=== PATIENT | female | born 1945 | race Caucasian/White ===

== ENCOUNTER 2017-06-09 12:23 | Emergency (ER) | payer OTHER, BC ==
[~2017-06-09] VITALS: Ht 162.6 cm; Wt 59.0 kg
[2017-06-09 13:37] VITALS: BP 126/68
== END 2017-06-09 13:37 | disposition home or self-care (01) ==
LOC: ER 12:23
DX: S40.011A Contusion of right shoulder, initial encounter (principal); F10.99 Alcohol use, unspecified with unspecified alcohol-induced disorder; Z77.22 Contact with and (suspected) exposure to environmental tobacco smoke (acute) (chronic); W18.09XA Striking against other object with subsequent fall, initial encounter; Y93.89 Activity, other specified; Y92.89 Other specified places as the place of occurrence of the external cause; Y99.8 Other external cause status

== ENCOUNTER → 2018-06-22 | Outpatient (CLI) | payer OTHER, BC ==
[~2018-06-22] MED LIST: ASPIR 8181 MG PO; HYDROCODONE-AP1 EAC6 PO; METOPROLOL SUCC50 MG PO; MIRALAX17 GM PO; NORVASC5 MG PO; PEPCID20 MG PO; PRINIVIL40 MG PO; ROSUVASTATIN CA20 MG PO; SIMVASTATIN40 MG PO; VITAMIN B-12500 MCG PO; VITAMINC500 PO
== END ==
LOC: RAD 08:59
DX: K80.20 Calculus of gallbladder without cholecystitis without obstruction (principal); R11.0 Nausea; I10 Essential (primary) hypertension

== ENCOUNTER 2018-06-26 05:28 | Observation (INO) | payer OTHER, BC ==
[~2018-06-26] VITALS: Ht 160 cm; Wt 57.6 kg
[2018-06-26] VITALS (7 sets, daily range): BP systolic 101–174; BP diastolic 56–86
--- NOTE | ~2018-06-26 | H ---
[facility] [place] [address] [address] HISTORY AND PHYSICAL Name: CLARITA HUNG Room #: PRE [facility]..#: [id number] Admission: Attend Phys: Tonny Borwnlee MD Discharge: Date of : 41 Report #: [id number] THIS REPORT FOR: //name// CC: oTnny Avila MD DATE OF SERVICE: 06/26/2018 CONSULTED BY: Dr. Avila. PREOPERATIVE DIAGNOSIS: Cholecystitis with cholelithiasis. HISTORY OF PRESENT ILLNESS: The patient is a 73-year-old who has not been feeling well for a couple of years. Last month she has had increasing symptom. Her stomach has been an issue for her for a while. She is complaining of nausea, dry heaves. Food makes her symptoms worse. She is complaining of bloating. She complains of gas, belching. She has had some constipation. Mild weight loss of 4-5 pounds. Her back is also an issue across the mid part of her back. She has even seen a massage therapist, which did not help. She is now only able to eat soup, salads and fruits. Has extensive history of indigestion. She has been on Tums for years. She has pain in the back and also underneath the right rib area. This has been going on for about a year. It was intermittent. Now it is continuous. The patient's mother had gallbladder surgery. The patient was recently hospitalized at for hyponatremia, probably due to her alteration in her diet and she was drinking too much water. For her abdominal discomfort an ultrasound was performed. Her lipase was noted to be elevated. This was on 06/21/2018. Lipase was 233 with a normal range of 85. The patient's liver function tests were normal, normal bilirubin, alkaline phosphatase, SGOT, SGPT. Her sodium is still running a bit low at 128 on 06/21/2018. The patient's white count is 5000, hemoglobin is 12.9, platelets are 328. Normal differential. The patient then had an ultrasound the following day on 06/22/2018. The patient was found to have gallstones. There is no gallbladder wall thickening, no common bile duct dilatation. The patient is brought in for laparoscopic gallbladder surgery for her fairly symptomatic cholecystitis. PAST MEDICAL HISTORY: The patient does have history of high blood pressure and elevated cholesterol. MEDICATIONS: Amlodipine 5 mg, lisinopril 40 mg, metoprolol 50 mg twice daily, MiraLax, Crestor 20 mg daily at bedtime, enteric coated aspirin 81 mg, vitamin C. ALLERGIES: The patient does not have any allergies. [address] [address] HISTORY AND PHYSICAL Name: CLARITA HUNG Room #: PRE [facility] [place]#: [id number] Admission: Attend Phys: Tonny Brownlee MD Discharge: Date of : 41 Report #: [id number] PAST SURGICAL HISTORY: She has not had any surgery. FAMILY HISTORY: Father of a heart attack at age 65. Mother had stroke. A sibling with heart disease. SOCIAL HISTORY: The patient does not smoke. The patient drinks about once or twice a day. REVIEW OF SYSTEMS: No chest pain, shortness of breath, palpitation. No numbness or weakness. She does have a generalized not feeling well for a while. PHYSICAL EXAMINATION: GENERAL: The patient is an elderly female, in no acute distress. HEENT: Pupils react to light. Extraocular muscles are intact. Oropharynx is clear. NECK: Soft and supple, no masses. LUNGS: Clear to auscultation. HEART: Regular rate and rhythm. No murmur or gallop. ABDOMEN: Soft, nondistended, nontender. Mild tenderness in right upper quadrant. Negative Rovsing sign. No mass, ascites. EXTREMITIES: No cyanosis, clubbing or edema. NEUROLOGIC: Motor and sensory exams are unremarkable. IMPRESSION AND PLAN: The patient is a 73-year-old who has had stomach issue for a while, she says. She for the last month has been having trouble with worsening nausea and dry heave. She recently was hospitalized at for hyponatremia. This may have been her alteration in diet and was drinking water without really eating much. The patient does have gallstones. Liver function tests are normal. She did have a mildly elevated lipase recently. I think this is probably from gallbladder irritation. I do not think this is pancreatitis or evidence of common duct stone. RECOMMENDATION: The patient is recommended to undergo laparoscopic cholecystectomy to treat her symptomatic cholecystitis with cholelithiasis. The procedure was discussed in detail. The patient understands the procedure, the risk of bleeding, infection, common bile duct injury and anesthetic risk. The recovery course was discussed. The patient wishes to proceed. By: [id number] Tonny Brownlee MD /nt
--- NOTE | ~2018-06-26 | PATH ---
[facility] [address] [place] [address] PATHOLOGY RPT PROCEDURE Name: CLARITA HUNG Room #: 457-P [facility] Kelvin Underwood#: [id number] Admission: 06/26/18 Date of : 41 Discharge: 06/27/18 Report #: [id number] Path Case #: [id number] [facility] Accession Number: [id number] . 01 Material submitted: . GALLBLADDER . 01 Clinical history: . Cholelithiasis and cholecystitis . 02 Diagnosis: Gallbladder, cholecystectomy: - Mild chronic cholecystitis. - Cholelithiasis. . 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 02 Electronically signed: . Meagan Correa MD, Pathologist NPI- [id number] . 01 Gross description: . The specimen is received in formalin, labeled "Hung, Rhetta, gallbladder", is a previously opened gallbladder measuring 8.2 x 3.0 x 1.4 cm (upon reconstruction) with a glistening, mix-green serosa. Further opening reveals a mix-brown granular mucosa and a wall that measures up to 0.2 cm thick. Within the container are several black irregular calculi measuring 1.0 x 0.8 x 0.6 cm in aggregate. No discrete masses are identified. Reverser tissue is submitted in A1. (SWS; 06/26/2018) SHS/SHS . 02 Pathologist provided ICD-10: K80.10 . 02 CPT . 874795 Specimen Comment: A courtesy copy of this report has been sent to Specimen Comment: [phone], . Specimen Comment: Report sent to / DR TAN Performed at: [address] [id number] MD Bobby Hernandez MD Phone: [phone] Performed at: [address] [address] PATHOLOGY RPT PROCEDURE Name: CLARITA HUNG Room #: 457-P [facility] Kelvin Underwood#: [id number] Admission: 06/26/18 Date of : 41 Discharge: 06/27/18 Report #: [id number] Path Case #: [id number] [address] [place], [place] [id number] MD Meagan Correa MD Phone: [phone]
--- NOTE | ~2018-06-26 | O ---
[facility] [place] [address] [place] [address] OPERATIVE REPORT Name: CLARITA HUNG Room #: 457-P [facility].#: [id number] Admission: 06/26/18 Attend Phys: Tonny Brownlee MD Discharge: Date of : 41 Report #: [id number] THIS REPORT FOR: //name// CC: Tonny Avila MD DATE OF SERVICE: 06/26/2018 PREOPERATIVE DIAGNOSIS: Cholecystitis with cholelithiasis. POSTOPERATIVE DIAGNOSIS: Cholecystitis with cholelithiasis. PROCEDURES PERFORMED: Laparoscopic cholecystectomy and cholangiogram. ANESTHESIA: General anesthesia. SURGEON: Tonny Brownlee MD COMPLICATIONS: None. ESTIMATED BLOOD LOSS: 5 mL. FINDINGS: Gallbladder is covered by adhesions. There are multiple stones in the gallbladder. Common bile duct appears normal. DESCRIPTION OF PROCEDURE: With the patient under general anesthesia, abdomen was prepped and draped in sterile fashion. IV antibiotic was administered. A 0.25% Marcaine was used to anesthetize the skin. A curvilinear incision was made infraumbilically about 2 cm. Fascia identified, grasped with hemostat. Fascia was then opened under visualization, 0 Vicryl suture placed on the fascia edges. With the abdominal wall lifted anteriorly, Veress needle was then placed through the peritoneum. Abdominal cavity was insufflated with CO2. After creating pneumoperitoneum pressure of 15, 11 mm trocar was placed into the pneumoperitoneum. Laparoscopic evaluation was unremarkable. The liver appeared normal. Two 5 mm trocars were placed in right lower quadrant and a 5 mm trocar placed in right epigastrium. Gallbladder was lifted over the liver. There is quite a bit of adhesion covering the gallbladder. This is likely due to chronic inflammation. Adhesions were taken down. The proximal gallbladder was identified. The peritoneum over the cystic duct and artery was dissected free. The cystic duct and artery were both isolated without difficulty. The common bile duct is a slightly visualized and noted to be medial and posterior. The cystic duct gallbladder junction was clipped. Opening was made in the cystic duct. Cholangiogram catheter was placed. There is resistance to placing of the catheter. I was able to get the tip of the catheter in and held with a clip. Fluoroscopic cholangiogram was obtained. The injection did meet some [address] [address] OPERATIVE REPORT Name: CLARITA HUNG Room #: 457-P [facility] Kelvin Underwood#: [id number] Admission: 06/26/18 Attend Phys: Tonny Brownlee MD Discharge: Date of : 41 Report #: [id number] resistance, but I was able to get the contrast to flow. The cystic duct showed up and then the common duct filled out. Common duct is small sized. No filling defect in the common duct. Dye flowed in the duodenum. The cholangiogram catheter was then removed. The proximal cystic duct was then clipped x 2 and then divided. The artery was also divided between 2 clips proximally and 1 distally and then divided. Gallbladder was freed from the liver bed. On the bed itself, there was a posterior vessel, this was also clipped x 1 and cauterized. The gallbladder was freed without difficulty. Gallbladder was placed in a specimen bag and retrieved through the infraumbilical port. The fascia was enlarged slightly and the gallbladder then came out. The gallbladder was opened off the field. There were multiple small stones that measured about 8 mm in size. No abnormal masses in the gallbladder wall. Specimens, gallbladder and the stones, were sent in for pathology. Liver bed was checked, hemostasis obtained. Irrigation was aspirated out. Trocars then removed with evacuation of CO2 as much as possible. The patient's fascia defect was closed with [id number] 0 Vicryl. Skin was irrigated, 5-0 PDS and Steri-Strip applied. Band-Aid used for dressing. The patient tolerated the procedure well. By: 11 31 Tonny Brownlee MD /nt
--- NOTE | ~2018-06-26 | EKG ---
[address] [email or web address] [address] ELECTROCARDIOGRAM REPORT Name: CLARITA HUNG Room #: 150-3 [facility]#: [id number] Admission: 06/26/18 Attend Phys: Tonny Brownlee MD Discharge: Date of : 41 Report #: [id number] THIS REPORT FOR: //name// [facility] Test Date: 2018-06-26 Test Time: 06:38:08 Pat Name: CLARITA HUNG Department: Room: [facility] Gender: F Crm Developer: VICTORINA : 1945 Requested By: Tonny Brownlee Order Number: [id number] MD: Ángel Silva Measurements Intervals [place] Rate: 63 P: 30 DE: 152 QRS: -15 QRSD: 90 T: 33 QT: 411 QTc: 421 Interpretive Statements Sinus rhythm Borderline left axis deviation Baseline wander in lead(s) V6 Compared to ECG 05/13/2018 14:48:33 No significant changes Electronically Signed On 06-26-2018 7:36:41 CDT by Ángel Silva [email or web address] <ELECTRONICALLY SIGNED> By: Ángel Silva MD, [facility] 06/26/18 0736 0638 Ángel Silva MD, [facility] /EPI
[~2018-06-26 05:28] MED LIST changes: -HYDROCODONE-AP1 EAC6 PO
[2018-06-26 07:02] LABS: CALCIUM 9.3 mg/dL (8.5-10.1); CREATININE 0.9 mg/dL (0.6-1.0)
[2018-06-27 07:25] VITALS: BP 167/80
[2018-06-27] MEDS ORDERED: HYDROCODONE-AP1 EAC6 PO (10:13)
[2018-06-27 10:33] VITALS: BP 167/80
== END 2018-06-27 10:53 | disposition home or self-care (01) ==
LOC: TBA 05:28 → OR 05:28 → 4W 10:20 → OR 10:20 → ENTRNSPT 06-27 10:45 → EDTRNSPTSTS 06-27 10:46 → 4W 06-27 10:53
PROVIDERS: Surgery
DX: K80.10 Calculus of gallbladder with chronic cholecystitis without obstruction (principal); E87.1 Hypo-osmolality and hyponatremia; K59.00 Constipation, unspecified; I10 Essential (primary) hypertension; E78.00 Pure hypercholesterolemia, unspecified
CPT/HCPCS: 50010; 50101; 50411; 50555; 50558; 51489; 53307; 53310; 53312; 55245; 55317; 56462; 56525; 56526; 62110; 62900; 70005

== ENCOUNTER → 2018-10-22 | Outpatient (CLI) | payer OTHER, BC ==
[~2018-10-22] VITALS: Ht 162.6 cm; Wt 59.0 kg
[~2018-10-22] MED LIST changes: +HYDROCODONE-AP1 EAC6 PO; +NEXIUM40 MG PO
--- NOTE | 2018-10-23 15:06 | PATH ---
[facility] [address] [place] [place] [address] PATHOLOGY RPT PROCEDURE Name: OSCAR HUNG Room #: REG [facility].#: [id number] Admission: 10/22/18 Date of : 41 Discharge: Report #: [id number] Path Case #: [id number] [facility] Accession Number: [id number] . 01 Material submitted: . RANDOM GASTRIC BIOPSIES . 01 Clinical history: . Dyspepsia . 02 Diagnosis: Gastric mucosa, random gastric, endoscopic biopsy: - Mild reactive gastropathy. - Negative for intestinal metaplasia or atrophy. - Negative for Helicobacter pylori (properly controlled immunohistochemical stain performed). (IUV/db; 10/23/2018) LBQ/10/23/2018 . 02 Electronically signed: . Meagan Correa MD, Pathologist NPI- [id number] . 01 Gross description: . The specimen is received in formalin, labeled "Oscar Hung, random gastric biopsy". Received are five segments of pale mix soft tissue ranging in size from 0.3 to 0.6 cm in maximum dimension. The specimen is submitted entirely in cassette A1. (CAA; 10/22/2018) QAC/QAC . 02 Pathologist provided ICD-10: K31.9 . 02 CPT . 078778 Specimen Comment: A courtesy copy of this report has been sent to Specimen Comment: [phone], . Specimen Comment: Report sent to / DR TAN Performed at: [address], [place], [place] [id number] MD Bobby Hernandez MD Phone: [phone] Performed at: [address] [id number] MD Meagan Correa MD Phone: [phone]
== END | disposition home or self-care (01) ==
LOC: GI 06:40
DX: K31.9 Disease of stomach and duodenum, unspecified (principal); I10 Essential (primary) hypertension; E78.00 Pure hypercholesterolemia, unspecified; K21.9 Gastro-esophageal reflux disease without esophagitis; Z90.49 Acquired absence of other specified parts of digestive tract; Z98.41 Cataract extraction status, right eye; Z98.42 Cataract extraction status, left eye; Z79.899 Other long term (current) drug therapy; Z98.890 Other specified postprocedural states; Z79.82 Long term (current) use of aspirin
CPT/HCPCS: 62110; 62900

== ENCOUNTER → 2018-12-27 | Outpatient (CLI) | payer OTHER, BC | LOC: MRI 09:27 | DX: M47.817 Spondylosis without myelopathy or radiculopathy, lumbosacral region (principal); M47.815 Spondylosis without myelopathy or radiculopathy, thoracolumbar region; M48.05 Spinal stenosis, thoracolumbar region; M51.25 Other intervertebral disc displacement, thoracolumbar region; M41.84 Other forms of scoliosis, thoracic region ==

== ENCOUNTER → 2019-01-04 | Outpatient (CLI) | payer OTHER, BC | LOC: RAD 13:03 | DX: K59.00 Constipation, unspecified (principal) ==

== ENCOUNTER → 2019-02-07 | Outpatient (CLI) | payer OTHER, BC ==
[~2019-02-07] VITALS: Ht 162.6 cm; Wt 59.0 kg
[~2019-02-07] MED LIST changes: +CENTRUM SILVER1 EAC4 PO; +CENTRUM SILVER1 EACH PO; +IBUPROFEN 200200 M1 PO
--- NOTE | ~2019-02-07 | HPC ---
[facility] [place] [address] PAIN MANAGEMENT CONSULTATION Name: CLARITA HUNG Room #: REG [facility].#: [id number] Admission: 02/07/19 ������������������ Attend Phys: Bernabe Miranda MD Discharge: ������������������ Date of : 41 Report #: [id number] THIS REPORT FOR: //name// CC: Jessica Miranda DATE OF SERVICE: 02/07/2019 CHIEF COMPLAINT: Right flank pain. HISTORY OF PRESENT ILLNESS: The patient is a johnny 73-year-old here today in the clinic with her at the request of Dr. Avila for assessment of her chronic pain. She describes pain in her right side. This is atypical of radiculopathy. It is between the ribcage and down to the iliac crest. She describes it as constant since last May, but there was no traumatic injury or onset that she can pinpoint. She has noticed that Advil helps to relieve the pain, which may be suggestive of arthropathy or spondylitic pain. It is made worse with walking and standing. If she is able to rest or get on to her back, typically pain will ease as well. If she is traveling some distance, she rests in the back seat of the car. She denies numbness, tingling, weakness or leg radiation. Today is actually a good day for her and she scores her pain today as 0. An average daily pain can be an 8-9, aching, sharp, stabbing and tender. MEDICATIONS: Metoprolol, lisinopril, amlodipine, rosuvastatin, Hazel aspirin, famotidine, Advil Liqui-Gels, Centrum Silver, vitamin C, B12, MiraLax daily. ALLERGIES: None. PAST MEDICAL HISTORY: Positive for hypertension and childhood illnesses are noted. It should be noted that she had a cholecystectomy on 06/19/2018 performed laparoscopically. It is perhaps not coincidental that her pain began shortly after this. Her pain is in the right flank posteriorly and in the abdomen. 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 She is a second and has 2 grandchildren from her and a previous marriage. She denies use of tobacco and enjoys alcohol 2-3 times a week in moderation in the social settings. REVIEW OF SYSTEMS: Positive for fatigue and weakness, history of cataracts, abdominal pain as described and some nocturia. PHYSICAL EXAMINATION: GENERAL: She is a pleasant, alert and oriented 73[place] [address] PAIN MANAGEMENT CONSULTATION Name: CLARITA HUNG Room #: REG [facility] Kamryn.#: [id number] Admission: 02/07/19 ������������������ Attend Phys: Bernabe Miranda MD Discharge: ������������������ Date of : 41 Report #: [id number] VITAL SIGNS: Her blood pressure is 138/72, heart rate 65, respirations 14. She is 5 feet 4 inches, 130 pounds with a BMI of 22.3. MUSCULOSKELETAL: She moves easily from a sitting to standing position. She ambulates without any antalgic features to her gait. Her lumbar spine range of motion is excellent in all planes, flexion, extension, rotation, yoyu-mp-[id number] tilt. She has minimal tenderness along the facet joints. She has no tenderness of the sacroiliac joint. She has some discomfort, but is very minor today along the posterior superior iliac crest, radiating a bit anteriorly towards the anterior iliac spine. ABDOMEN: Soft and there are no palpable masses. IMPRESSION: My initial thought was that this is probably the typical of spondylitic pain with referral. After discussing longer with the patient and her , there may well be some correlation with her cholecystectomy performed around the onset of the pain. I am not sure there is much we can do with this. Typically, there is not a treatable source for this type of postsurgical pain, particularly if it comes deep and maybe visceral. It does not appear to be scar, nerve entrapment, which is sometimes treatable with injection. I have recommended that she continue to use a nonsteroidal anti-inflammatory drug and remain active, hoping that if time goes on that this pain will simply glenn. I do not think there is much else we can do. May consider the possibility of CT of the abdomen or perhaps other attempts to identify abdominal source, although I feel that it is unlikely we will find radiographic evidence that will lead us to a treatable condition. She will continue with physical therapy and I have encouraged her to try to resume her normal activities including golf. ��������������������������������������������� ���������������������������������������� By: ��������������������������������������������� 1745 0840 Bernabe Miranda MD /nt
[2019-02-07 09:52] VITALS: BP 138/72
--- NOTE | 2019-02-07 10:23 | NUR ---
Pain Clinic Assessment: 1. History of Osteoarthritis: Not Applicable History of Rheumatoid Arthritis: Not Applicable 2. Height: 5 ft. 4 in. 162.6 cm. Weight: 130.0 lb. oz. 58.968 kg. Patient's BMI: 22.3 3. Vital Signs: BP: 138/72 Pulse: 65 Resp: 14 Temp: 02 Sat: 100 ECG Mon: 4. Pain Intensity: 4 5. Fall Risk: Dizziness: N Needs help standing or walking: N Fallen in the last 3 months: N Fall risk comments: 6. Patient on Blood Thinner: None 7. History of Hypertension: Y 8. Opioid Therapy greater than 6 weeks: N Opiate Contract Signed: 9. Risk Assessment Tool Provided: LOW RISK 0/3 10. Functional Assessment Tool: 50/70 11. Recreational Drug Use: Never Drug Type: Tobacco Use: Never Smoker Tobacco Type: Amount or Packs/day: How Many Years: Alcohol Use: Yes Frequency: Weekly Quant: 2-3
== END ==
LOC: PAIN 06:55
DX: R10.9 Unspecified abdominal pain (principal); G89.29 Other chronic pain; I10 Essential (primary) hypertension; Z79.899 Other long term (current) drug therapy; Z90.49 Acquired absence of other specified parts of digestive tract

== ENCOUNTER → 2019-03-08 | Outpatient (CLI) | payer OTHER, BC ==
[~2019-03-08] VITALS: Ht 162.6 cm; Wt 59.4 kg
[~2019-03-08] MED LIST changes: +TYLENOL PM EX-1 EACH PO
[2019-03-08 08:43] VITALS: BP 172/82
--- NOTE | 2019-03-08 08:49 | NUR ---
Pain Clinic Assessment: 1. History of Osteoarthritis: DENIES History of Rheumatoid Arthritis: DENIES 2. Height: 5 ft. 4 in. 162.6 cm. Weight: 131.0 lb. oz. 59.421 kg. Patient's BMI: 22.5 3. Vital Signs: BP: 172/82 Pulse: 65 Resp: 14 Temp: 02 Sat: 98 ECG Mon: 4. Pain Intensity: 7 5. Fall Risk: Dizziness: N Needs help standing or walking: N Fallen in the last 3 months: N Fall risk comments: 6. Patient on Blood Thinner: None 7. History of Hypertension: Y 8. Opioid Therapy greater than 6 weeks: N Opiate Contract Signed: 9. Risk Assessment Tool Provided: LOW RISK 0/3 10. Functional Assessment Tool: 50/70 11. Recreational Drug Use: Never Drug Type: Tobacco Use: Never Smoker Tobacco Type: Amount or Packs/day: How Many Years: Alcohol Use: Yes Frequency: Daily Quant: WINE
--- NOTE | 2019-03-19 17:25 | HPC ---
[facility] [place] [address] PAIN MANAGEMENT CONSULTATION Name: CLARITA HUNG Room #: REG [facility] Amy.#: [id number] Admission: 03/08/19 ������������������ Attend Phys: Bernabe Miranda MD Discharge: ������������������ Date of : 41 Report #: [id number] THIS REPORT FOR: //name// CC: Javier Miranda DATE OF SERVICE: 03/08/2019 Followup visit for right flank pain. This was a 25-minute followup visit to discuss pain generator and options for treatment. The patient returns today with her . She has now become much more depressed about her ongoing pain. It is limiting her day-to-day activities. This is a first episode of chronic pain she has had in her 74 years. It is significant pain as well; it is abdominal and interferes with all of her day-to-day activity. She has tried to resume some of her normal activities as we discussed last visit including golf, but it has been a difficult process for her. She has medication adverse. She does not take much for pain and has tried to take an additional Advil or two. When she played golf the other day, she took 3 explaining to me that she did not know that she could take more than 1. She repeatedly discusses her concerns about medication, but is yet comfortable taking medications for her heart and blood pressure. She takes vitamins each day. I respect this version to medication. We reviewed her history today. There is no question that this pain came on within a very short period of time following her cholecystectomy. In many ways, this is consistent with a visceral pain syndrome. We discussed abdominal pain syndrome such as pancreatitis. I do not think she has pancreatitis, but certainly the pain radiates through her abdomen and has deep, stabbing, aching qualities. I have recommended a CT abdomen. PHYSICAL EXAMINATION: VITAL SIGNS: She is 5 feet 4 inches, 131 pounds, BMI of 22.5. Blood pressure 172/82, heart rate 65, respirations 14. GENERAL: She is tearful today and readily admits to depression. She has localized discomfort in the right upper quadrant of the abdomen. There are no palpable masses. IMPRESSION: Chronic abdominal pain, which I believe may be visceral in nature. I no longer believe this is spondylitic pain. [address] [address] PAIN MANAGEMENT CONSULTATION Name: CLARITA HUNG Room #: REG [facility].#: [id number] Admission: 03/08/19 ������������������ Attend Phys: Bernabe Miranda MD Discharge: ������������������ Date of : 41 Report #: [id number] RECOMMENDATIONS: 1. CT of the abdomen with and without contrast. 2. Begin Cymbalta 30 mg daily. Lengthy discussion about the use of this as a pain medication. 3. Follow up in the pain clinic after the x-ray studies. 4. After she left, I thought that we should likely go ahead and do a CMP to check for hepatic enzymes and check a lipase and an amylase as well. We will discuss with Dr. Avila. ��������������������������������������������� <ELECTRONICALLY SIGNED> ���������������������������������������� By: Bernabe Miranda MD ��������������������������������������������� 03/19/19 1725 1218 1348 Bernabe Miranda MD /nt
== END ==
LOC: PAIN 06:51
DX: R10.9 Unspecified abdominal pain (principal); Z79.899 Other long term (current) drug therapy

== ENCOUNTER → 2019-03-13 | Outpatient (CLI) | payer OTHER, BC ==
[2019-03-13 08:13] LABS: CREATININE 0.8 mg/dL (0.6-1.0)
== END ==
LOC: CAT 07:36
PROVIDERS: Anesthesiology Pain Medicine
DX: G89.18 Other acute postprocedural pain (principal); R10.84 Generalized abdominal pain; M41.86 Other forms of scoliosis, lumbar region; I70.0 Atherosclerosis of aorta; N20.0 Calculus of kidney; Z90.49 Acquired absence of other specified parts of digestive tract

== ENCOUNTER → 2019-04-05 | Outpatient (CLI) | payer OTHER, BC ==
[~2019-04-05] VITALS: Ht 154.9 cm; Wt 57.6 kg
[~2019-04-05] MED LIST changes: +CYMBALTA30 MG PO
[2019-04-05 09:28] VITALS: BP 181/83
--- NOTE | 2019-04-05 09:29 | NUR ---
Pain Clinic Assessment: 1. History of Osteoarthritis: DENIES History of Rheumatoid Arthritis: DENIES 2. Height: 5 ft. 1 in. 154.9 cm. Weight: 127.0 lb. oz. 57.607 kg. Patient's BMI: 24.0 3. Vital Signs: BP: 181/83 Pulse: 71 Resp: 16 Temp: 02 Sat: 98 ECG Mon: 4. Pain Intensity: 7 5. Fall Risk: Dizziness: N Needs help standing or walking: N Fallen in the last 3 months: N Fall risk comments: 6. Patient on Blood Thinner: None 7. History of Hypertension: Y 8. Opioid Therapy greater than 6 weeks: N Opiate Contract Signed: 9. Risk Assessment Tool Provided: LOW RISK 0/3 10. Functional Assessment Tool: 50/70 11. Recreational Drug Use: Never Drug Type: Tobacco Use: Never Smoker Tobacco Type: Amount or Packs/day: How Many Years: Alcohol Use: Yes Frequency: Quant:
--- NOTE | 2019-04-08 09:38 | HPC ---
[facility] [address] [place] [address] PAIN MANAGEMENT CONSULTATION Name: CLARITA HUNG Room #: REG [facility] Kj#: [id number] Admission: 04/05/19 ������������������ Attend Phys: Mirna Rubin Discharge: ������������������ Date of : 41 Report #: [id number] THIS REPORT FOR: //name// CC: Mirna Askewe Glennycharlotte DATE OF SERVICE: 04/05/2019 CHIEF COMPLAINT: Right flank pain, low back pain. HISTORY OF PRESENT ILLNESS: This is a very pleasant 74-year-old female, who returns to the pain clinic today for refill of her Cymbalta. She had recently seen Dr. Bernabe Miranda less than a month ago and had started this medication to help with some of her pain as well as some of her depression. She admits that she finds that it is beneficial in helping her with her depression. She feels that she still needs her Advil as well several times a day, but not every day. She is rating her pain today a 7/10. She tells me today it is in her lower back and mid right back, as well as her right flank area. It is worse with walking, playing golf and standing, but better with this medication and resting. The patient tells me she cannot believe that she is on a medication such as this though she is finding it is helpful. She is wondering what her recent CAT scan showed of her abdomen as well today. ALLERGIES: No known drug allergies. CURRENT LIST OF MEDICATIONS: Cymbalta 30 mg daily, Tylenol Extra Strength p.r.n., ibuprofen 200 mg 3 tablets a day p.r.n., multivitamin, Pepcid, Crestor 20 mg at bedtime, MiraLax, Prinivil 40 mg daily, vitamin B12, aspirin 81 mg, vitamin C, Norvasc 5 mg and metoprolol 50 mg b.i.d. PQRS: 1. She denies any osteoarthritis or rheumatoid arthritis. 2. Height is 5 feet 1 inch, weight is 127, BMI is 24. 3. Vital signs: Blood signs 181/83, then retaken is 157/81; pulse is 62; respirations 16, oxygen sat is 98. 4. Pain score is 7/10. 5. Denies dizziness. She does not need help with walking or standing. She has not fallen in the last 3 months. 6. The patient is not on any blood thinners. She does take medicine for hypertension. 7. She is not on any opioids. 8. Risk assessment tool is low. Functional assessment 50/70. 9. Recreational drug use, she denies. She is not a smoker [place] [address] PAIN MANAGEMENT CONSULTATION Name: ABHILASHMARTHAKATIE Harry Room #: REG [facility]#: [id number] Admission: 04/05/19 ������������������ Attend Phys: Mirna Rubin Discharge: ������������������ Date of : 43 Report #: [id number] PHYSICAL EXAMINATION: GENERAL: This is an alert and orientated 74-year-old female, slightly depressed today, but tells me is slowly improving. She appears her stated age. MUSCULOSKELETAL: She has pain in her right flank area today and complains of tenderness across her lumbar spine, greater on the right. No radicular pain presently. The patient walks with a normal gait. RADIOLOGY: A CAT scan of her abdomen with and without contrast shows degenerative changes at multiple levels in her lower thoracic and lumbar spine with mild right convexity of lumbar scoliosis and extensive atherosclerosis of the abdominal aorta and iliac arteries. IMPRESSION: 1. Chronic flank pain. 2. Chronic low back pain without radiculopathy. 3. Depression. RECOMMENDATIONS: 1. We will continue Cymbalta at 30 mg once a day. We had a lengthy discussion that this is used for pain medication as well as an antidepressant. The patient is on a low dose. If she feels that this is beneficial, but feels like she could increase the dose slightly, we talked about taking 30 mg twice a day. At this juncture, she does not want to increase the medication. I did tell her that if she decides in the future that she wants to and then start taking 2 tablets, 1 in the morning, 1 at night or 2 tablets in the morning, just to call our office and we will rewrite the prescription for 60 tablets of the 30 mg dose. Scripts given today for Cymbalta 30 mg, #30 with two additional refills. We will alter this to a 90-day prescription when she is stable on a dose. 2. Follow up as needed. The patient is seen today in collaboration with Dr. Eric Alberto. ��������������������������������������������� <ELECTRONICALLY SIGNED> ���������������������������������������� By: Mirna Rubin ��������������������������������������������� 04/08/19 0938 [id number] Mirna Rubin /diana
== END ==
LOC: PAIN 09:12
DX: M54.16 Radiculopathy, lumbar region (principal); R10.9 Unspecified abdominal pain; M54.5 Low back pain; F32.9 Major depressive disorder, single episode, unspecified; G89.29 Other chronic pain

== ENCOUNTER → 2019-06-04 | Outpatient (CLI) | payer OTHER, BC | LOC: MRI 08:48 | DX: K86.2 Cyst of pancreas (principal) ==

== ENCOUNTER → 2019-09-05 | Outpatient (CLI) | payer OTHER, BC ==
[~2019-09-05] VITALS: Ht 154.9 cm; Wt 58.6 kg
[~2019-09-05] MED LIST changes: +MIRALAX119 GM PO
--- NOTE | ~2019-09-05 | HPC ---
[facility] [address] [place] [address] PAIN MANAGEMENT CONSULTATION Name: CLARITA HUNG [id number] Admission: 09/05/19 Attend Phys: Mirna Rubin Discharge: Date of : 41 Report #: [id number] THIS REPORT FOR: //name// CC: Mirna Miranda MD DATE OF SERVICE: 09/05/2019 CHIEF COMPLAINT: Right flank pain, low back pain and depression. HISTORY OF PRESENT ILLNESS: This is a very pleasant 74-year-old female, who returns to the pain clinic today for refill of her Cymbalta. She feels that this medication is very beneficial. She reports she is no longer crying all the time. She feels more upbeat since being stable on her Cymbalta. She needs a refill of this medication today. She does report pain in her lower back and her thoracic area. She feels that she also has continued right flank pain. She believes that is from a cyst on her pancreas that has been stable. Her pain score is at 5-6 out of 10, worse with walking and standing that she feels like occasional Tylenol and rest are very beneficial. The patient reports that she was recently hospitalized at [facility] for a low sodium level. She thought she went to the hospital for elevated blood pressure. They did adjust her blood pressure medicines. She reports she is on 3 medications. Now, she is going to follow up with Dr. Austin perez next week to discuss these medications. Her blood pressure today is 155/77. She does not feel that she needs to be on 3 separate medications. ALLERGIES: No known drug allergies. CURRENT LIST OF MEDICATIONS: Cymbalta 30 mg daily, Tylenol Extra Strength p.r.n., Advil p.r.n., Centrum Silver, Pepcid, rosuvastatin, MiraLax, lisinopril, vitamin B12, aspirin, vitamin C, Norvasc, metoprolol. PQRS: 1. She has osteoarthritis in her back and neck. Denies any rheumatoid arthritis. 2. Height is 5 feet 1 inch, weight is 129, BMI is 24. 3. Vital signs 155/77, pulse is 65, respirations 14, oxygen sat is 100%. 4. Pain score is 5-6. 5. Denies dizziness, does not need help walking or standing, has not fallen in the last 3 months. 6. The patient is not on any blood thinners, but does take medicine for hypertension. She does not take opioids. Her risk assessment is low. Functional assessment is 50/70[place] [address] PAIN MANAGEMENT CONSULTATION Name: ABHILASHKILLIANHarry Harry Room #: REG [facility]#: [id number] Admission: 09/05/19 Attend Phys: Mirna Rubin Discharge: Date of : 41 Report #: [id number] 7. Recreational drug use, she denies. She is not a smoker and occasionally drinks alcohol. PHYSICAL EXAMINATION: GENERAL: This is alert and orientated 74-year-old female who was upbeat today. She appears her stated age, placing her pain score at 5-6. MUSCULOSKELETAL: She has pain in her right flank area and tenderness in her thoracic and lumbar spine in the paraspinal musculature. She does not complain of radicular pain. She walks with a normal gait. IMPRESSION: 1. Chronic flank pain. 2. Chronic low back pain without radiculopathy. 3. Depression. PLAN: 1. We discussed treatment options with the patient today. The patient finds the Cymbalta very beneficial. We will continue this medicine giving her a script for 90 days with 1 additional refill. I explained to the patient that she may receive this medication from Dr. Avila if she does not want to come to our office. We will gladly see her that this is a medication that she may obtain from her primary doctor. The patient verbalizes understanding. She will ask him about in the future. 2. We did discuss injections. Dr. Bernabe Miranda has offered her epidurals. The patient feels that if her pain does get worse or it becomes worsen in her thoracic spine and lumbar spine, she may decide that that is an option for her. 3. I encouraged the patient if she feels discomfort to take 1 extra strength Tylenol prior to doing activities and then one later in the day. I explained to her the max Tylenol dose for her would be 6 tablets a day. I do not believe she will take nearly that many another option would be ibuprofen to help with general aches and pains. I instructed her as long as she has no kidney issues, she may take 2 tablets 3 times a day if need be. 4. The patient is seen today in collaboration with Dr. Bernabe Miranda. The patient is discharged to home. By: 1422 00 Mirna Rubin /diana
[2019-09-05 13:38] VITALS: BP 155/77
--- NOTE | 2019-09-05 14:00 | NUR ---
Pain Clinic Assessment: 1. History of Osteoarthritis: back neck History of Rheumatoid Arthritis: DENIES 2. Height: 5 ft. 1 in. 154.9 cm. Weight: 129.2 lb. oz. 58.605 kg. Patient's BMI: 24.4 3. Vital Signs: BP: 155/77 Pulse: 65 Resp: 14 Temp: 02 Sat: 100 ECG Mon: 4. Pain Intensity: 5-6 5. Fall Risk: Dizziness: N Needs help standing or walking: N Fallen in the last 3 months: N Fall risk comments: 6. Patient on Blood Thinner: None 7. History of Hypertension: Y 8. Opioid Therapy greater than 6 weeks: N Opiate Contract Signed: 9. Risk Assessment Tool Provided: LOW RISK 0/3 10. Functional Assessment Tool: 50/70 11. Recreational Drug Use: Never Drug Type: Tobacco Use: Never Smoker Tobacco Type: Amount or Packs/day: How Many Years: Alcohol Use: Yes Frequency: Daily Quant: 1-2 glasses/wine
== END ==
LOC: PAIN 07:05
DX: R10.9 Unspecified abdominal pain (principal); M54.5 Low back pain; F32.9 Major depressive disorder, single episode, unspecified

== ENCOUNTER → 2019-10-07 | Outpatient (CLI) | payer OTHER, BC ==
[~2019-10-07] VITALS: Ht 160 cm; Wt 59.0 kg
[~2019-10-07] MED LIST changes: +ALPRAZOLAM 0.0.25 M1 PO
--- NOTE | 2019-10-08 16:06 | PATH ---
[facility] [address] [place] [address] PATHOLOGY RPT PROCEDURE Name: OSCAR HUNG Room #: REG [facility].#: [id number] Admission: 10/07/19 Date of : 41 Discharge: Report #: [id number] Path Case #: [id number] [facility] Accession Number: [id number] . 01 Material submitted: . PART A: colon - POLYP AT ASCENDING COLON. Modifiers: ascending PART B: colon - POLYP AT TRANSVERSE COLON. Modifiers: transverse . 01 Clinical history: . Pre-op diagnosis: Gas, bloating, abdominal pain Post-op diagnosis: Hemorrhoids, diverticulosis, polyps . 02 Diagnosis: A. Polyp, at ascending colon, endoscopic biopsy: - Tubular adenoma. - Negative for high-grade dysplasia. . B. Polyp, transverse colon, endoscopic biopsy: - Tubular adenoma. - Negative for high-grade dysplasia. . (IUV:marce; 10/08/2019) MBR 10/08/2019 1350 Local . 02 Electronically signed: . Meagan Correa MD, Pathologist NPI- [id number] . 01 Gross description: . A. The specimen is received in formalin, labeled "Oscar Hung, polyp at ascending colon". Received are two segments of pale mix soft tissue ranging in size from 0.2 to 0.5 cm in maximum dimensions. The specimen is submitted entirely in cassette A1. . B. The specimen is received in formalin, labeled "Oscar Hung, polyp at transverse colon". Received are two segments of pale mix soft tissue measuring 0.3 cm each in maximum dimensions. The specimen is submitted entirely in cassette B1. (CAA; 10/07/2019) QAC/QAC 10/07/2019 1718 Local . 02 Pathologist provided ICD-10: D12.2, D12.3 . 02 CPT . 870591, 989766 Specimen Comment: A courtesy copy of this report has been sent to [phone] [address] PATHOLOGY RPT PROCEDURE Name: OSCAR HUNG Room #: REG [facility] Kj#: [id number] Admission: 10/07/19 Date of : 41 Discharge: Report #: [id number] Path Case #: [id number] Specimen Comment: [id number] Specimen Comment: Report sent to / DR TAN Performed at: [address], [place], [place] [id number] MD Bobby Hernandez MD Phone: [phone] Performed at: [address] [id number] MD Meagan Correa MD Phone: [phone]
== END | disposition home or self-care (01) ==
LOC: GI 08:33
DX: R19.4 Change in bowel habit (principal); D12.2 Benign neoplasm of ascending colon; D12.3 Benign neoplasm of transverse colon; K57.30 Diverticulosis of large intestine without perforation or abscess without bleeding; K64.8 Other hemorrhoids; I10 Essential (primary) hypertension; E78.00 Pure hypercholesterolemia, unspecified; F32.9 Major depressive disorder, single episode, unspecified; F41.9 Anxiety disorder, unspecified; K21.9 Gastro-esophageal reflux disease without esophagitis; Z98.890 Other specified postprocedural states; Z79.899 Other long term (current) drug therapy; Z98.42 Cataract extraction status, left eye; Z90.49 Acquired absence of other specified parts of digestive tract; Z98.41 Cataract extraction status, right eye; Z87.891 Personal history of nicotine dependence

== ENCOUNTER → 2019-11-11 | Outpatient (CLI) | payer OTHER, BC ==
[~2019-11-11] VITALS: Ht 154.9 cm; Wt 56.6 kg
[~2019-11-11] MED LIST changes: +METHADONE HCL5 MG PO
[2019-11-11 12:46] VITALS: BP 157/74
--- NOTE | 2019-11-11 13:08 | NUR ---
Pain Clinic Assessment: 1. History of Osteoarthritis: back neck History of Rheumatoid Arthritis: DENIES 2. Height: 5 ft. 1 in. 154.9 cm. Weight: 124.8 lb. oz. 56.609 kg. Patient's BMI: 23.6 3. Vital Signs: BP: 157/74 Pulse: 65 Resp: 14 Temp: 02 Sat: 100 ECG Mon: 4. Pain Intensity: 6 5. Fall Risk: Dizziness: N Needs help standing or walking: N Fallen in the last 3 months: N Fall risk comments: 6. Patient on Blood Thinner: None 7. History of Hypertension: Y 8. Opioid Therapy greater than 6 weeks: N Opiate Contract Signed: 9. Risk Assessment Tool Provided: LOW RISK-1 10. Functional Assessment Tool: 11. Recreational Drug Use: Never Drug Type: Tobacco Use: Former Smoker Tobacco Type: Amount or Packs/day: How Many Years: Alcohol Use: Yes Frequency: Daily Quant: 1 GLASS OF WINE
--- NOTE | 2019-11-14 14:31 | HPC ---
[facility] [place] [address] PAIN MANAGEMENT CONSULTATION Name: CLARITA HUNG Room #: REG [facility].#: [id number] Admission: 11/11/19 Attend Phys: Bernabe Miranda MD Discharge: Date of : 41 Report #: [id number] THIS REPORT FOR: cc: Javier Avila MD, Rene P. MD Morgan,Bernabe Lopez MD ~ THIS REPORT FOR: //name// CC: Javier Miranda DATE OF SERVICE: 11/11/2019 Followup visit for severe back pain radiating into the flank bilaterally. The patient returns to my clinic. I last saw her on 04/05/2019. At that time, focus was on her abdomen given that onset of her pain following gallbladder surgery. I did note at that visit that she had changes seen on her CAT scan in her lower thoracic and lumbar spine with convexity scoliosis and extensive atherosclerosis of the abdominal aorta. Consideration was given to radiculopathy at that visit and I discussed in March, the possibility of an epidural injection. The patient returns today reporting that she has been a bit better on the Cymbalta that we initiated. She feels that it has helped her emotionally, but the pain is still severe. PQRS: Positive for osteoarthritis of the spine and the neck. Her BMI is 23.6. Her blood pressure 157/74, heart rate 65, respirations 14, O2 sat 100, pain intensity 6/10. She needs no help standing or walking. She denies blood thinning medications and does not take opioids. The opioid risk tool assessment score is 1. She has medication for hypertension provided by primary care service. Functional assessment tool score is 45/70 suggesting fairly significant impact on many of her day-to-day activities and interactions due to her pain. She drinks one glass of wine at night socially. PHYSICAL EXAMINATION: VITAL SIGNS: Above: GENERAL: She is pleasant. She seems a little less depressed than when I saw her last summer. MUSCULOSKELETAL: Examination of the spine reveals curvature and tenderness across the mid spine in the thoracolumbar region and slight rotational scoliosis. Pain then radiates underneath the ribcage to the hip and then into the abdomen, more on the right than the left. [facility] [address] [place] [address] PAIN MANAGEMENT CONSULTATION Name: CLARITA HUNG Room #: REG [facility].#: [id number] Admission: 11/11/19 Attend Phys: Bernabe Miranda MD Discharge: Date of : 41 Report #: [id number] IMPRESSION: Thoracolumbar radiculopathy. I did believe that this may well be radicular pain given the severe degenerative changes seen early from about T10 through L3. I recommended an epidural injection today and we will perform it high in the lumbar spine. Procedure, risks and benefits discussed. PROCEDURE: She was taken to fluoroscopic suite, placed prone, skin prepped with ChloraPrep. Skin anesthetized over the T12-L1 interspace. A 20-gauge Tuohy epidural needle advanced first attempt in the epidural space with loss of resistance. There was no blood or CSF aspirated. Excellent spread of dye was seen throughout the epidural space in cephalad caudad direction, was followed then by 3 mL of 0.5% lidocaine mixed with 80 mg of triamcinolone. She tolerated the procedure well. Pain score was 0 in recovery room at discharge __. I will see her back in a month or two. We may repeat the injection if we find that it provides her with some meaningful lasting relief. All other measures have been exhausted. <ELECTRONICALLY SIGNED> By: Bernabe Miranda MD 11/14/19 1431 1723 [id number] Bernabe Miranda MD /nt
== END | disposition home or self-care (01) ==
LOC: PAIN 06:42
DX: M54.15 Radiculopathy, thoracolumbar region (principal); G89.29 Other chronic pain; M54.9 Dorsalgia, unspecified; I10 Essential (primary) hypertension; Z87.891 Personal history of nicotine dependence; Z79.899 Other long term (current) drug therapy; Z98.890 Other specified postprocedural states

== ENCOUNTER → 2020-02-06 | Outpatient (CLI) | payer OTHER, BC ==
[~2020-02-06] VITALS: Ht 154.9 cm; Wt 57.0 kg
--- NOTE | ~2020-02-06 | HPC ---
[facility] [place] [address] PAIN MANAGEMENT CONSULTATION Name: CLARITA HUNG Room #: REG [facility].#: [id number] Admission: 02/06/20 Attend Phys: Bernabe Miranda MD Discharge: Date of : 41 Report #: [id number] THIS REPORT FOR: cc: Javier Avila MD, Rene P. MD Morgan,Bernabe Lopez MD ~ CC: Javier Miranda DATE OF SERVICE: 02/06/2020 Followup visit for thoracic spondylosis, mid back pain, degenerative disk disease T10-T11, T11-T12 with spinal stenosis. The patient returns to pain clinic today for repeat epidural injection, which showed some benefit at first treatment. She was injected on 11/11/2019 and reports pain relief that was persistent for about 10 days. Pain is now beginning to return. X-rays show marked degenerative changes throughout the thoracolumbar spine, particularly at the level of T12-L1. Repeat injection was discussed. She has questions about golf. I think she can return to it. I do not think she will hurt herself if she swings easily, but she should start out with a gradual return to some rotational movements and take her cues from that. An 8 iron and a half a bucket of balls might be enough to give her an idea whether she can swing the club comfortably. We reviewed her medications. She does not take opioids. On physical examination she is a pleasant female, alert and oriented, no signs of depression or anxiety. Her blood pressure is 144/74, heart rate 65, BMI 23.7. Pain intensity is 9/10. She is not a fall risk, but has a slight kyphosis and walks with some forward bending at the waist. She denies use of tobacco. She enjoys one alcoholic beverage on a daily basis in a social setting with her . She complains of diffuse osteoarthritis, most of this in the spinal region, neck and back. She has some radicular pain that radiates along the C5-C6 distribution as well. PHYSICAL EXAMINATION: Vital signs as noted. Pleasant, alert and oriented. Mild curvature and kyphosis of the spine is noted. Tenderness across the mid thoracic spine extending down into the lumbar region. It radiates from there into both hips, worse on the right than the left as before. IMPRESSION: Severe degenerative spine disease with thoracic radiculopathy and lumbar radiculopathy. [address] [address] PAIN MANAGEMENT CONSULTATION Name: CLARITA HUNG Room #: REG [facility] Kj#: [id number] Admission: 02/06/20 Attend Phys: Bernabe Miranda MD Discharge: Date of : 41 Report #: [id number] PROCEDURE: T12-L1 epidural injection under fluoroscopic guidance. PROCEDURE: After informed consent, she was taken to fluoroscopic suite for treatment, placed prone, skin prepped with ChloraPrep. Skin anesthetized over the T11-T12 interspace. A 20-gauge Tuohy epidural needle advanced into the epidural space with loss of resistance. There was no blood or CSF aspirated. A 1 mL of Omnipaque injected with good spread of dye observed in the epidural space followed by 3 mL of 0.5% lidocaine mixed with 80 mg of triamcinolone. She tolerated the procedure well and was observed for 45 minutes and discharged. Follow up as needed. By: [id number] Bernabe Miranda MD /nt
[2020-02-06 14:20] VITALS: BP 144/74
--- NOTE | 2020-02-06 14:35 | NUR ---
Pain Clinic Assessment: 1. History of Osteoarthritis: back neck History of Rheumatoid Arthritis: DENIES 2. Height: 5 ft. 1 in. 154.9 cm. Weight: 125.6 lb. oz. 56.972 kg. Patient's BMI: 23.7 3. Vital Signs: BP: 144/74 Pulse: 65 Resp: 14 Temp: 02 Sat: 100 ECG Mon: 4. Pain Intensity: 9 5. Fall Risk: Dizziness: N Needs help standing or walking: N Fallen in the last 3 months: N Fall risk comments: 6. Patient on Blood Thinner: None 7. History of Hypertension: Y 8. Opioid Therapy greater than 6 weeks: N Opiate Contract Signed: 9. Risk Assessment Tool Provided: LOW RISK-1 10. Functional Assessment Tool: 11. Recreational Drug Use: Never Drug Type: Tobacco Use: Former Smoker Tobacco Type: Amount or Packs/day: How Many Years: Alcohol Use: Yes Frequency: Daily Quant: 1
== END | disposition home or self-care (01) ==
LOC: PAIN 06:52
DX: M51.14 Intervertebral disc disorders with radiculopathy, thoracic region (principal); M48.04 Spinal stenosis, thoracic region; G89.29 Other chronic pain; Z98.890 Other specified postprocedural states; Z79.899 Other long term (current) drug therapy; Z87.891 Personal history of nicotine dependence

== ENCOUNTER → 2020-03-30 | Outpatient (CLI) | payer OTHER, BC ==
[~2020-03-30] VITALS: Ht 154.9 cm; Wt 56.4 kg
[~2020-03-30] MED LIST changes: +TRAMADOL 50 MG50 MG PO
--- NOTE | ~2020-03-30 | HPC ---
[facility] [place] [address] PAIN MANAGEMENT CONSULTATION Name: CLARITA HUNG Room #: REG ADALI Lucas.#: [id number] Admission: 03/30/20 Attend Phys: Bernabe Miranda MD Discharge: Date of : 41 Report #: [id number] THIS REPORT FOR: cc: Javier Avila MD, Rene P. MD Morgan,Bernabe Lopez MD ~ CC: Javier Miranda DATE OF SERVICE: 03/30/2020 Followup visit for chronic back pain, spondylosis, scoliosis, degenerative disk disease and spinal stenosis. The patient returns to pain clinic today to discuss further treatments. She has had a couple of epidural injections, but unfortunately results have been modest at best. I have injected her high at about T11-T12. This level was chosen because of her significant degenerative changes of the spine at that location as noted by radiographic studies. She did get relief, but the relief was not long lived. She is here today to discuss medications. She specifically wants to know about tramadol. I had placed her on Cymbalta 30 mg once daily and she is now continuing on that and it does seem to have some benefits for both depression and for pain as we had hoped. Today, her overall pain score is a 7/10. PQRS is positive for osteoarthritis and spondylosis. She complains of mostly pain along the spine, cervicalgia as well as back pain, thoracic and lumbar. Much of this is related to degenerative joint disease. Her BMI is 23.5. Blood pressure 139/69, heart rate is 66, respirations 14, O2 sat 100. Pain intensity is 7/10. She can independently move from sitting to standing position, walks without dizziness and has not fallen in the last 3 months. She is on no blood thinning medications. She does have a history of hypertension treated well by Dr. Avila and she follows with him regularly. She is not on an opioid agreement and has some concerns about starting one. She does not tolerate stronger opioids well, but has questions about trying tramadol today. She is at low risk for addiction with a score of 1 on the ORT. Functional assessment score is 39/70 and unchanged. She denies tobacco, drinks alcohol socially with her . The patient is under some stress. She feels that her is showing some early signs of dementia. She travels with him and sometimes he gets lost driving the car, an early sign. PHYSICAL EXAMINATION: Is as noted. Examination of the low back reveals marked curvature and tenderness. There is rotational component to her scoliosis. [facility] [address] [place] [address] PAIN MANAGEMENT CONSULTATION Name: CLARITA HUNG Room #: REG [facility] Kamryn.#: [id number] Admission: 03/30/20 Attend Phys: Bernabe Miranda MD Discharge: Date of : 41 Report #: [id number] of her pain today is low in the low back and it radiates to the hips. It does have a slight L5-S1 radicular component and straight leg raising intensifies pain, both in the back and in the legs. She may be a candidate for an epidural injection. PLAN: I spent about 25 minutes with her today reviewing medications and I gave her a drawing of different classes of medicines. The nonsteroidal anti-inflammatory drugs such as ibuprofen, Advil, Motrin, Aleve [id number] and the difference between Tylenol was discussed. There are many different NSAIDs. We also discussed opioids, serotonin modulators which may affect her use of tramadol and we talked about neuropathic pain and gabapentin. I was losing her, so I stopped there, but I did give her a little handout so that she could review it later. Her plan today is to trial tramadol. I gave her a prescription for 30 tramadol. She understands that there may be some central effects that she may not like, may cause dizziness and lightheadedness, but she needs to see if it will be effective for her pain when she needs to reach for something and it is severe. She has times where she feels that she needs to be as active and functional and the pain interferes dramatically, maybe tramadol play a role there. I have continued her on diclofenac 50 mg we initiated as well as Cymbalta, so should be on both nonsteroidal anti-inflammatory drugs as well as Cymbalta. Followup visit scheduled in 3 months. She will call the pain clinic to let us know how the trial went with tramadol and I am willing to order additional tramadol for her if necessary. By: [id number] Bernabe Miranda MD /nt
[2020-03-30 14:12] VITALS: BP 139/69
--- NOTE | 2020-03-30 14:34 | NUR ---
Pain Clinic Assessment: 1. History of Osteoarthritis: back neck History of Rheumatoid Arthritis: DENIES 2. Height: 5 ft. 1 in. 154.9 cm. Weight: 124.4 lb. oz. 56.427 kg. Patient's BMI: 23.5 3. Vital Signs: BP: 139/69 Pulse: 66 Resp: 14 Temp: 02 Sat: 100 ECG Mon: 4. Pain Intensity: 7 5. Fall Risk: Dizziness: N Needs help standing or walking: N Fallen in the last 3 months: N Fall risk comments: 6. Patient on Blood Thinner: None 7. History of Hypertension: Y 8. Opioid Therapy greater than 6 weeks: N Opiate Contract Signed: 9. Risk Assessment Tool Provided: LOW RISK-1 10. Functional Assessment Tool: 11. Recreational Drug Use: Never Drug Type: Tobacco Use: Former Smoker Tobacco Type: Cigarettes Amount or Packs/day: How Many Years: Alcohol Use: Yes Frequency: Quant:
== END ==
LOC: PAIN 07:05
PROVIDERS: ATTEND Anesthesiology Pain Medicine
DX: G89.29 Other chronic pain (principal); M54.9 Dorsalgia, unspecified; M47.819 Spondylosis without myelopathy or radiculopathy, site unspecified; M41.9 Scoliosis, unspecified; M48.00 Spinal stenosis, site unspecified

== ENCOUNTER → 2020-05-04 | Outpatient (CLI) | payer OTHER, BC ==
[~2020-05-04] VITALS: Ht 154.9 cm; Wt 55.3 kg
--- NOTE | ~2020-05-04 | HPC ---
[facility] [place] [address] [place] [address] PAIN MANAGEMENT CONSULTATION Name: CLARITA HUNG [facility]: [facility] [id number] Admission: 05/04/20 Attend Phys: Bernabe Miranda MD Discharge: Date of : 41 Report #: [id number] THIS REPORT FOR: cc: Javier Avila MD, Rene P. MD Morgan,Bernabe Lopez MD ~ CC: Javier Miranda DATE OF SERVICE: 05/04/2020 Followup visit for severe back pain with high lumbar, low thoracic radiculopathy. The patient returns today for a therapeutic epidural injection. She has significant degenerative issue of her thoracolumbar spine. MRI from a year ago or so showed severe degenerative disk disease eccentric to the right at T11, T12 and moderate broad-based disk bulge there. This narrowed the spinal canal at 9 mm. She also has additional degenerative changes at L1-L2 with moderate narrowing of the left lateral recess and at L4-L5 with severe degenerative disk disease eccentric to the left. Her symptoms are more consistent with her upper findings and although epidural injections do not dramatically change things for her, they definitely help and they give her relief for a number of months. Her last injection with us was performed on 02/06/2020. Prior to that, she had one in March. This will be her third injection in a period of about 6 months. She has some tramadol in the past for a trial, but finds that medications are not as helpful. She also complains of pain in her right shoulder. She saw Dr. Kushal Andrew. She was asking for a second opinion and I felt that rather than going outside of Dr. Andrew's group, if she wanted to see someone else for her shoulder if there are no entered group issues, she could see Dr. Hong. Dr. Hong is a friend and operated on my shoulders, so I had some personal experience with his expertise. I feel that he would be willing to give her another idea on treatment if she so desires without going outside of the group. She has pain with abduction and lifting her arm. She also has pain with external rotation. Localized tenderness along the acromioclavicular joint and into the deltoid. PQRS: Positive for osteoarthritis and now she appears in addition to her spondylosis in her cervical spine and thoracic spine, she has pain in her right shoulder. BMI is 23.5, blood pressure 135/69, heart rate is 66. She has not fallen. She is on no blood thinners. Dr. Avila treats her for hypertension. She takes no opioids. Low risk for addiction by the ORT score and her functional assessment score is 39. She denies use of tobacco, drinks alcohol socially with her , occasional. [address] [address] PAIN MANAGEMENT CONSULTATION Name: CLARITA HUNG Room #: REG [facility] Kj#: [id number] Admission: 05/04/20 Attend Phys: Bernabe Miranda MD Discharge: Date of : 41 Report #: [id number] PHYSICAL EXAMINATION: GENERAL: Pleasant female, alert and oriented. VITAL SIGNS: Blood pressure is noted. MUSCULOSKELETAL: Reveals tenderness across the low back and pain that radiates along the costovertebral margin along the right. It radiates anteriorly following roughly at T12, L1, L2 distribution. Strength in the lower extremities is adequate. She has no numbness, tingling, or weakness to suggest lumbar radiculopathy. IMPRESSION: Thoracolumbar radiculopathy secondary to significant degenerative disease of the thoracic and lumbar spine. RECOMMENDATION: Repeat epidural injection, right paramedian, T12-L1. PROCEDURE: After informed consent, she was taken to fluoroscopic suite, placed prone, skin prepped with ChloraPrep. Skin anesthetized over the T12-L1 interspace. A 20-gauge Tuohy epidural needle advanced in first attempt in the epidural space using loss of resistance. There was no blood and no CSF aspirated. A 1 mL of Omnipaque injected. Excellent spread of dye observed in the epidural space followed by 3 mL of 0.5% lidocaine mixed with 80 mg triamcinolone. She tolerated the procedure well and was observed for 45 minutes and discharged. Follow up as needed. By: [id number] Bernabe Miranda MD /nt
[2020-05-04 11:00] VITALS: BP 148/76
--- NOTE | 2020-05-04 11:32 | NUR ---
Pain Clinic Assessment: 1. History of Osteoarthritis: back neck History of Rheumatoid Arthritis: DENIES 2. Height: 5 ft. 1 in. 154.9 cm. Weight: 122.0 lb. oz. 55.339 kg. Patient's BMI: 23.1 3. Vital Signs: BP: 148/76 Pulse: 70 Resp: 14 Temp: 02 Sat: 100 ECG Mon: 4. Pain Intensity: 8 5. Fall Risk: Dizziness: N Needs help standing or walking: N Fallen in the last 3 months: N Fall risk comments: 6. Patient on Blood Thinner: None 7. History of Hypertension: Y 8. Opioid Therapy greater than 6 weeks: N Opiate Contract Signed: 9. Risk Assessment Tool Provided: LOW RISK-1 10. Functional Assessment Tool: 49 11. Recreational Drug Use: Never Drug Type: Tobacco Use: Former Smoker Tobacco Type: Cigarettes Amount or Packs/day: How Many Years: Alcohol Use: Yes Frequency: Special Occasions Quant:
== END ==
LOC: PAIN 07:06
PROVIDERS: ATTEND Anesthesiology Pain Medicine
DX: M51.16 Intervertebral disc disorders with radiculopathy, lumbar region (principal); M51.14 Intervertebral disc disorders with radiculopathy, thoracic region; Z87.891 Personal history of nicotine dependence; Z79.899 Other long term (current) drug therapy

== ENCOUNTER → 2020-06-19 | Outpatient (CLI) | payer OTHER, BC | LOC: MRI 12:32 | PROVIDERS: ATTEND Family Medicine | DX: M51.26 Other intervertebral disc displacement, lumbar region (principal); M51.24 Other intervertebral disc displacement, thoracic region; M25.78 Osteophyte, vertebrae; M47.817 Spondylosis without myelopathy or radiculopathy, lumbosacral region; M41.85 Other forms of scoliosis, thoracolumbar region; G89.29 Other chronic pain; M48.061 Spinal stenosis, lumbar region without neurogenic claudication ==

== ENCOUNTER → 2020-06-25 | Outpatient (CLI) | payer OTHER, BC ==
[~2020-06-25] VITALS: Ht 154.9 cm; Wt 55.6 kg
--- NOTE | ~2020-06-25 | HPC ---
[facility] [address] [place] [address] PAIN MANAGEMENT CONSULTATION Name: CLARITA HUNG Room #: REG ADALI Kj#: [id number] Admission: 06/25/20 Attend Phys: Bernabe Miranda MD Discharge: Date of : 41 Report #: [id number] CC: Javier Miranda DATE OF SERVICE: 06/25/2020 Followup visit for lumbar spondylosis with radiation. The patient has been treated with a tentative diagnosis of thoracic radiculopathy due to the changes that she has in her lumbo-thoracic junction. The epidural injections have perhaps provided a bit of relief, but certainly nothing of major success and the duration of response has been very short. I have decided that we will attempt to identify other pain generators. She sought out a new MRI from Dr. Avila and I am able to review those x-rays today during her visit. The MRI of thoracic and lumbar spine does show the changes at T12-L1 with a right convexity lumbar scoliosis. Also noted is several levels of spondylitic change, bilateral, most prominent at L2-L3, L3-L4, L4-L5, but also noted above and below that area as well. We have given the consideration to facet arthropathy as a pain generator and diagnostic/therapeutic triamcinolone injections will be performed today. This may give us more information, give us some directions and treatment. Medications remain an option, but we have tried to avoid using stronger pain medications for side effects reasons and concerns about the use of opioids. PQRS is positive for some osteoarthritis, spondylosis of cervical and lumbar spine. Her BMI 23.1. She is 5 feet 1 inch and 122 pounds, blood pressure 148/76, heart rate 70, respirations 14, O2 sat 100. Pain intensity 8/10. She has not fallen in the last 3 months. She bruises easily, but is on no blood thinners. She is treated by Dr. Avila for hypertension and I reviewed her antihypertensive medications and indeed all of her medicines from the electronic medical record, which are noted on this record. No changes in medication. Opioid risk tool assessment is 1 and she is considered at low risk. Her functional assessment score is unfortunately high at 49, suggesting dramatic involvement of her pain and day-to-day activities. She denies use of tobacco, but enjoys alcohol in the social setting with her . PHYSICAL EXAMINATION: VITAL SIGNS: As noted above. MUSCULOSKELETAL: Reveals curvature of the thoracolumbar spine with rotation. She has tenderness along the paravertebral musculature mostly in the mid lumbar spine. There is no radiating pain into the legs at this time. No radiating pain around the chest wall as she has complained of in the past, the epidural may have helped some with that component of pain. IMPRESSION: Lumbar spondylosis. PROCEDURE: Recommendations: Bilateral L2-L3, L3-L4, L4-L5 facet injections with triamcinolone and bupivacaine. After informed consent, she was taken to fluoroscopic suite, placed prone, skin prepped with ChloraPrep. Skin anesthetized first on the left with 1% lidocaine overlying the L2-L3, L3-L4 and L4-L5 facet joints. I gently advanced 25-gauge 3-1/2 inch spinal needle into the posterior inferior recess and capsule of each joint. After negative aspiration, I injected 1 mL of 0.5% bupivacaine and 10 mg of triamcinolone. [place] were removed on the left. She was allowed to reposition then C-arm was then moved to the right. Mirror image injections were performed at the same joints using the same technique. Same injected as well 1 mL of 0.5% bupivacaine and 10 mg of triamcinolone at each joint at L2-L3, L3-L4, L4-L5. She tolerated the procedures well and there were no complications. She was taken to recovery room for observation. We will assess both early and late response to this injection and determine if further treatments may be indicated. She may well be a candidate for medial branch nerve blocks based upon this first diagnostic injections and if she passes medial branch nerve block testing, I would consider radiofrequency ablation. First steps first will see what happens here. By: [id number] Bernabe Miranda MD /nt
[2020-06-25 10:19] VITALS: BP 139/68
--- NOTE | 2020-06-25 10:33 | NUR ---
Pain Clinic Assessment: 1. History of Osteoarthritis: back neck History of Rheumatoid Arthritis: DENIES 2. Height: 5 ft. 1 in. 154.9 cm. Weight: 122.6 lb. oz. 55.611 kg. Patient's BMI: 23.2 3. Vital Signs: BP: 139/68 Pulse: 16 Resp: 14 Temp: 02 Sat: 100 ECG Mon: 4. Pain Intensity: 8 5. Fall Risk: Dizziness: N Needs help standing or walking: N Fallen in the last 3 months: N Fall risk comments: 6. Patient on Blood Thinner: None 7. History of Hypertension: Y 8. Opioid Therapy greater than 6 weeks: N Opiate Contract Signed: 9. Risk Assessment Tool Provided: LOW RISK-1 10. Functional Assessment Tool: 53/70 11. Recreational Drug Use: Never Drug Type: Tobacco Use: Former Smoker Tobacco Type: Amount or Packs/day: How Many Years: Alcohol Use: Yes Frequency: Quant:
== END | disposition home or self-care (01) ==
LOC: PAIN 06:56
PROVIDERS: ATTEND Anesthesiology Pain Medicine
DX: M47.26 Other spondylosis with radiculopathy, lumbar region (principal); Z79.899 Other long term (current) drug therapy; Z87.891 Personal history of nicotine dependence; Z72.89 Other problems related to lifestyle

== ENCOUNTER → 2020-07-23 | Outpatient (CLI) | payer OTHER, BC ==
[~2020-07-23] VITALS: Ht 154.9 cm; Wt 54.9 kg
[~2020-07-23] MED LIST changes: +MELOXICAM7.5 MG PO; +ONDANSETRON HCL4 M2 PO
[2020-07-23 12:40] VITALS: BP 137/64
--- NOTE | 2020-07-23 12:53 | NUR ---
Pain Clinic Assessment: 1. History of Osteoarthritis: back neck History of Rheumatoid Arthritis: DENIES 2. Height: 5 ft. 1 in. 154.9 cm. Weight: 121.0 lb. oz. 54.885 kg. Patient's BMI: 22.9 3. Vital Signs: BP: 137/64 Pulse: 62 Resp: 16 Temp: 02 Sat: 100 ECG Mon: 4. Pain Intensity: 5 5. Fall Risk: Dizziness: N Needs help standing or walking: N Fallen in the last 3 months: N Fall risk comments: 6. Patient on Blood Thinner: None 7. History of Hypertension: Y 8. Opioid Therapy greater than 6 weeks: N Opiate Contract Signed: 9. Risk Assessment Tool Provided: LOW RISK-1 10. Functional Assessment Tool: 53/ 11. Recreational Drug Use: Never Drug Type: Tobacco Use: Former Smoker Tobacco Type: Amount or Packs/day: How Many Years: Alcohol Use: Yes Frequency: Quant:
== END ==
LOC: PAIN 06:53
PROVIDERS: ATTEND Anesthesiology Pain Medicine
DX: M47.816 Spondylosis without myelopathy or radiculopathy, lumbar region (principal); I10 Essential (primary) hypertension; Z87.891 Personal history of nicotine dependence; Z88.8 Allergy status to other drugs, medicaments and biological substances; Z79.899 Other long term (current) drug therapy

== ENCOUNTER → 2020-08-20 | Outpatient (CLI) | payer OTHER, BC ==
[~2020-08-20] VITALS: Ht 154.9 cm; Wt 55.2 kg
[~2020-08-20] MED LIST changes: +PROTONIX 20 MG20 MG PO
[2020-08-20 13:04] VITALS: BP 126/63
--- NOTE | 2020-08-20 13:26 | NUR ---
Pain Clinic Assessment: 1. History of Osteoarthritis: back neck History of Rheumatoid Arthritis: DENIES 2. Height: 5 ft. 1 in. 154.9 cm. Weight: 121.6 lb. oz. 55.157 kg. Patient's BMI: 23.0 3. Vital Signs: BP: 126/63 Pulse: 70 Resp: 14 Temp: 02 Sat: 100 ECG Mon: 4. Pain Intensity: 10 5. Fall Risk: Dizziness: N Needs help standing or walking: N Fallen in the last 3 months: N Fall risk comments: 6. Patient on Blood Thinner: None 7. History of Hypertension: Y 8. Opioid Therapy greater than 6 weeks: N Opiate Contract Signed: 9. Risk Assessment Tool Provided: LOW RISK-1 10. Functional Assessment Tool: 53/ 11. Recreational Drug Use: Never Drug Type: Tobacco Use: Former Smoker Tobacco Type: Amount or Packs/day: How Many Years: Alcohol Use: Yes Frequency: Weekly Quant: 1-2
== END | disposition home or self-care (01) ==
LOC: PAIN 06:48
PROVIDERS: ATTEND Anesthesiology Pain Medicine
DX: M47.816 Spondylosis without myelopathy or radiculopathy, lumbar region (principal); M54.5 Low back pain; I10 Essential (primary) hypertension; Z98.890 Other specified postprocedural states; Z79.899 Other long term (current) drug therapy; Z87.891 Personal history of nicotine dependence

== ENCOUNTER → 2020-12-14 | Outpatient (CLI) | payer OTHER, BC | LOC: LAB 11:58 | PROVIDERS: ATTEND Anesthesiology | DX: Z01.812 Encounter for preprocedural laboratory examination (principal); Z20.822 Contact with and (suspected) exposure to COVID-19 ==

== ENCOUNTER → 2021-01-14 | Outpatient (CLI) | payer OTHER, BC ==
[~2021-01-14] VITALS: Ht 154.9 cm; Wt 56.0 kg
[~2021-01-14] MED LIST changes: +ADVIL LIQUI-GE200 MG PO; +HYDROCODON-ACE1 EAC7 PO
[2021-01-14 10:21] VITALS: BP 146/72
--- NOTE | 2021-01-14 10:27 | NUR ---
Pain Clinic Assessment: 1. History of Osteoarthritis: back neck History of Rheumatoid Arthritis: DENIES 2. Height: 5 ft. 1 in. 154.9 cm. Weight: 123.4 lb. oz. 55.974 kg. Patient's BMI: 23.3 3. Vital Signs: BP: 146/72 Pulse: 58 Resp: 16 Temp: 02 Sat: 100 ECG Mon: 4. Pain Intensity: 10 5. Fall Risk: Dizziness: N Needs help standing or walking: N Fallen in the last 3 months: N Fall risk comments: 6. Patient on Blood Thinner: None 7. History of Hypertension: Y 8. Opioid Therapy greater than 6 weeks: N Opiate Contract Signed: 9. Risk Assessment Tool Provided: LOW RISK-1 10. Functional Assessment Tool: 53/70 11. Recreational Drug Use: Never Drug Type: Tobacco Use: Former Smoker Tobacco Type: Amount or Packs/day: How Many Years: Alcohol Use: Yes Frequency: Quant:
== END ==
LOC: PAIN 08:51
PROVIDERS: ATTEND Anesthesiology Pain Medicine
DX: M47.26 Other spondylosis with radiculopathy, lumbar region (principal); Z79.899 Other long term (current) drug therapy; Z79.891 Long term (current) use of opiate analgesic

== ENCOUNTER → 2021-02-11 | Outpatient (CLI) | payer OTHER, BC ==
[~2021-02-11] VITALS: Ht 154.9 cm; Wt 55.3 kg
[2021-02-11 10:21] VITALS: BP 139/74
--- NOTE | 2021-02-11 10:28 | NUR ---
Pain Clinic Assessment: 1. History of Osteoarthritis: back neck History of Rheumatoid Arthritis: DENIES 2. Height: 5 ft. 1 in. 154.9 cm. Weight: 122.0 lb. oz. 55.339 kg. Patient's BMI: 23.1 3. Vital Signs: BP: 139/74 Pulse: 61 Resp: 16 Temp: 02 Sat: 100 ECG Mon: 4. Pain Intensity: 7 5. Fall Risk: Dizziness: N Needs help standing or walking: N Fallen in the last 3 months: N Fall risk comments: 6. Patient on Blood Thinner: None 7. History of Hypertension: Y 8. Opioid Therapy greater than 6 weeks: N Opiate Contract Signed: 9. Risk Assessment Tool Provided: LOW RISK-1 10. Functional Assessment Tool: 53/70 11. Recreational Drug Use: Never Drug Type: Tobacco Use: Former Smoker Tobacco Type: Amount or Packs/day: How Many Years: Alcohol Use: Yes Frequency: Daily Quant: 1
== END ==
LOC: PAIN 07:03
PROVIDERS: ATTEND Anesthesiology Pain Medicine
DX: G89.4 Chronic pain syndrome (principal); M47.26 Other spondylosis with radiculopathy, lumbar region; I10 Essential (primary) hypertension; Z79.891 Long term (current) use of opiate analgesic; Z79.899 Other long term (current) drug therapy; Z87.891 Personal history of nicotine dependence

== ENCOUNTER → 2021-06-24 | Outpatient (CLI) | payer OTHER, BC ==
[~2021-06-24] VITALS: Ht 160 cm; Wt 54.0 kg
[~2021-06-24] MED LIST changes: +MOBIC7.5 MG PO; +NORVASC10 MG PO
[2021-06-24 09:36] VITALS: BP 158/68
--- NOTE | 2021-06-24 09:40 | NUR ---
Pain Clinic Assessment: 1. History of Osteoarthritis: back neck History of Rheumatoid Arthritis: DENIES 2. Height: 5 ft. 3 in. 160.0 cm. Weight: 119.0 lb. oz. 53.978 kg. Patient's BMI: 21.1 3. Vital Signs: BP: 158/68 Pulse: 66 Resp: 16 Temp: 02 Sat: 98 ECG Mon: 4. Pain Intensity: 5 5. Fall Risk: Dizziness: N Needs help standing or walking: N Fallen in the last 3 months: N Fall risk comments: 6. Patient on Blood Thinner: None 7. History of Hypertension: Y 8. Opioid Therapy greater than 6 weeks: N Opiate Contract Signed: 9. Risk Assessment Tool Provided: LOW RISK-1 10. Functional Assessment Tool: 53 11. Recreational Drug Use: Never Drug Type: Tobacco Use: Former Smoker Tobacco Type: Amount or Packs/day: How Many Years: Alcohol Use: Yes Frequency: Quant:
== END ==
LOC: PAIN 06:51
PROVIDERS: ATTEND Clinical Nurse Specialist Adult Health
DX: G89.4 Chronic pain syndrome (principal); M47.26 Other spondylosis with radiculopathy, lumbar region; I10 Essential (primary) hypertension; Z79.891 Long term (current) use of opiate analgesic; Z79.899 Other long term (current) drug therapy; Z72.89 Other problems related to lifestyle; Z87.891 Personal history of nicotine dependence

== ENCOUNTER 2021-11-12 12:15 | Emergency (ER) | payer OTHER, BC ==
[~2021-11-12] VITALS: Ht 157.5 cm; Wt 54.4 kg
[2021-11-12 14:09] VITALS: BP 130/67
== END 2021-11-12 14:09 | disposition home or self-care (01) ==
LOC: ER 12:15
DX: M54.2 Cervicalgia (principal); K21.9 Gastro-esophageal reflux disease without esophagitis; F41.9 Anxiety disorder, unspecified; F32.9 Major depressive disorder, single episode, unspecified; I10 Essential (primary) hypertension; E78.5 Hyperlipidemia, unspecified; Z90.49 Acquired absence of other specified parts of digestive tract; Z79.899 Other long term (current) drug therapy